=== PATIENT | male | born 2000 | race African-American/Black ===

== ENCOUNTER 2022-09-22 21:06 | Emergency (ER) | payer OTHER ==
[~2022-09-22] VITALS: Ht 188 cm; Wt 95.0 kg
[2022-09-23] MEDS ORDERED: ACETAMINOPHEN 325 MG TAB PO ONE (01:00)
[2022-09-23] MEDS ORDERED: IBUP80TA PO (01:34)
[2022-09-23 01:52] VITALS: BP 136/81
== END 2022-09-23 01:54 | disposition home or self-care (01) ==
LOC: M ED 21:06
DX: S93.401A Sprain of unspecified ligament of right ankle, initial encounter (principal); W00.0XXA Fall on same level due to ice and snow, initial encounter; Y92.410 Unspecified street and highway as the place of occurrence of the external cause; Z90.89 Acquired absence of other organs

== ENCOUNTER 2025-05-19 03:04 | Emergency (ER) | payer OTHER ==
[~2025-05-19] VITALS: Ht 188 cm; Wt 98.3 kg
[~2025-05-19 03:04] MED LIST: IBUP80TA PO
[2025-05-19 03:07] VITALS: BP 124/83; TEMP 98.2; O2SAT 100
== END 2025-05-19 04:11 | disposition left against medical advice (07) ==
LOC: M ED 03:04
DX: Z53.21 Procedure and treatment not carried out due to patient leaving prior to being seen by health care provider (principal)